=== PATIENT | male | born 1945 | race Caucasian/White ===

== ENCOUNTER → 2016-09-27 | Outpatient (CLI) | payer MEDICARE, OTHER ==
--- NOTE | 2016-09-27 15:03 | RAD ---
Chest radiograph 09/27/2016 at 1440 hours Indication: Shortness of air Comparison: Chest radiograph 06/19/2006 Technique: PA and lateral views of the chest are provided. Findings: Cardiomediastinal silhouette is within normal limits. Tiny calcified granuloma noted in the right upper lung. No pleural effusions, pulmonary vascular congestion or pneumothorax. The lungs are clear. Osseous structures are normal. Impression: No acute cardiopulmonary process.
--- NOTE | 2016-09-27 15:51 | RAD ---
Ventilation/perfusion lung scan, 09/27/2016: History: COPD, hypertension, shortness of breath The ventilation study was performed utilizing 19.0 mCi of xenon-133. Activity in the lungs is moderately heterogeneous. There is moderate patchy retention of activity in both lungs on the washout phase compatible with the patient's known emphysema. Perfusion imaging was performed utilizing 5.5 mCi of technetium 99m MAA. A similar pattern of activity is present on the perfusion scans. No definite unmatched segmental perfusion defects are seen. IMPRESSION: 1. Matched ventilation and perfusion abnormalities most compatible with emphysema. 2. The probability of pulmonary emboli is considered to be low.
== END | disposition home or self-care (01) ==
LOC: NM 14:25
PROVIDERS: ATTEND Family Medicine
DX: J44.0 Chronic obstructive pulmonary disease with (acute) lower respiratory infection (principal); J84.10 Pulmonary fibrosis, unspecified; I10 Essential (primary) hypertension
CPT/HCPCS: 71020; 78582; 96374; A9540; A9558

== ENCOUNTER → 2016-10-06 | Outpatient (CLI) | payer MEDICARE, OTHER ==
--- NOTE | 2016-10-06 13:49 | RAD ---
2 views of the Chest 10/06/2016 2:30 PM Indication: Shortness of breath. Comparison: Chest radiograph September 27, 2016 Findings: There is mild bilateral hyperinflation. No pneumothorax or pleural effusion is identified. No focal infiltrates are appreciated. Heart size is normal. Bony thorax is intact. Impression: Mild hyperinflation. Findings could represent COPD or other obstructive process. Otherwise no acute cardiopulmonary abnormality is detected.
--- NOTE | 2016-10-06 14:07 | RAD ---
Ventilation/perfusion lung scan, 10/06/2016: History: Dyspnea, COPD The ventilation study was performed utilizing 16 mCi of xenon-133. Activity in the lungs is heterogeneous. There is considerable patchy retention of activity in both lungs on the washout phase. Perfusion imaging was performed utilizing 5.5 mCi of technetium 99m MAA. A similar pattern of activity is present in the lungs. No definite unmatched or segmental perfusion defects are seen. The perfusion pattern is similar to that seen on the 09/27/2016 study. IMPRESSION: 1. Ventilation and perfusion abnormalities compatible with obstructive pulmonary disease. 2. There are no VQ findings to suggest pulmonary emboli.
== END | disposition home or self-care (01) ==
LOC: DXRAD 12:19
PROVIDERS: ATTEND Family Medicine
DX: J44.0 Chronic obstructive pulmonary disease with (acute) lower respiratory infection (principal); J98.11 Atelectasis
CPT/HCPCS: 71020; 78582; 96374; A9540; A9558